=== PATIENT | male | born 1975 | race Caucasian/White ===

== ENCOUNTER 2016-11-23 08:55 | Emergency (ER) | payer OTHER ==
[~2016-11-23 08:55] MED LIST: ASPIRIN ADULT L81 M1 PO; ATIVAN1 MG PO; LISINOPRIL10 MG PO; LOPRESSOR25 MG PO; PRILOSEC20 MG PO; SUBOXONE1 MI3; ZANTAC 150 MAX150 MG PO
--- NOTE | 2016-11-23 09:43 | ED NURSING NOTES ---
Clinical Report - Nurses [facility] [address] [place] [address] 11/23/2016 8:57 [id number] Triage time 09:06. Acuity: LEVEL 3. Chief Complaint: PALPITATIONS. Alert. No acute distress. [place] COMA SCORE: [place] Coma Scale: 15- eyes open spontaneously (4); best verbal response- oriented x 4 (5); best motor response- obeys commands (6). --09:11 Yesi Mendez R.N. 09:06 11/23/16. BP: 133/86. HR: 95. RR: 16. O2 saturation: 98%. Temp: 97.9 F. Pain level now: 0/10. --09:11 Yesi Mendez R.N. Weight: 3.1 kg stated. Height/Length: 71 inches Per Patient. BMI: 1. --09:09 Yesi Mendez R.N. Medications Metoprolol Tartrate Oral 50 mg, daily. --09:08 Yesi Mendez R.N. Medication/allergy information source: the patient. --09:11 Yesi Mendez R.N. Allergies Sulfa Antibiotics. Possible --09:08 Yesi Mendez R.N. History Arrived by private vehicle. Historian: patient. Unaccompanied. Primary physician ([place]). Onset. (about 0330). ( woke this AM and felt like he was in AF again). SOCIAL HX: Heavy tobacco smoker- 1 pack per day. Alcohol use; consumes three wine daily. History of occasional drug use: marijuana. FALL RISK ASSESSMENT: Fall risk assessment completed. No fall risk identified. FUNCTIONAL ASSESSMENT: Functional assessment: no impairments noted. LEARNING NEEDS ASSESSMENT: The learning needs assessment revealed no barriers. --09:11 Yesi Mendez R.N. PROBLEMS: Atrial Fibrillation. Congestive Heart Failure. Alcoholism. Hypertension. --09:09 Yesi Mendez R.N. ADDITIONAL SURGERIES: Knee Surgery. --09:09 Yesi Mendez R.N. Assessment GENERAL / NEURO / PSYCH: The patient is awake, alert and in no distress and is oriented and cooperative. He has good eye contact. RESPIRATORY: Respirations not labored. SKIN: Skin is warm and dry. --09:11 Yesi Mendez R.N. Interventions ID and allergy band on patient. To treatment room. --09:11 Yesi Mendez R.N. PHYSICAL ASSESSMENT 09:16 11/23/16. Ambulatory to room. Patient gowned. GENERAL / NEURO / PSYCH: Alert. Oriented X 4. Appears in no acute distress. RESPIRATORY: Respirations not labored. CVS: Cardiac rhythm: sinus rhythm. SKIN: Skin is warm and dry. --09:16 Yesi Mendez R.N. NURSING PROGRESS NOTES 09:12 11/23/2016 Site #1 started via IV in the right antecubital space with an 18g angiocath, with aseptic technique and good blood return; one attempt. Blood drawn: rainbow set. Labeled in the presence of the patient and sent to the lab. Saline lock flushed with 10 mL saline (by Ninfa SAMUEL). --09:12 Yesi Mendez R.N. 09:13 11/23/16. environmental monitoring technician, pulse oximeter and NIBP monitor placed on patient. Patient gowned. Head of bed elevated. Call light placed in reach. Side rails up x 2. Bed placed in lowest position. Brakes of bed on. --09:13 Yesi Mendez R.N. EKG time: (12). EKG was ordered, performed by a tech and shown to the ED physician. --09:18 Grace Rabago, Tech1 The patient reports no complaints and he is calm. RESPIRATORY: No respiratory distress. SKIN: Skin is warm and dry. --09:31 Ninfa Ye R.N. 09:30 11/23/16. BP: 112/87. HR: 77. RR: 18. O2 saturation: 96%. Pain level now 0/10. --09:31 Ninfa Ye R.N. DISPOSITION / DISCHARGE Departure time: 09:50. Condition at departure: unchanged. No learning barriers present. Discharge instructions provided and reviewed with the patient. Patient verbalized understanding. Written instructions provided in Yakut. The patient was discharged home. He left the Emergency Department ambulatory and via private vehicle. Patient driving. --09:50 Ninfa Ye R.N. 09:49 11/23/16. BP: 128/86. HR: 86. RR: 16. O2 saturation: 98%. Pain level now 0/10. --09:50 Ninfa Ye R.N. Locked/Released at 11/23/2016 9:51 by Ninfa Ye R.N.
--- NOTE | 2016-11-23 09:43 | ED CLINICAL REPORT ---
Clinical Report - Physicians/Mid Levels [facility] [address] [place] [address] 11/23/2016 8:57 Patient: HOSEA ZHU Time Seen: 09:29. Arrived- By private vehicle. Historian- patient. HISTORY OF PRESENT ILLNESS Chief Complaint: PALPITATIONS. Modifying factors. Not worsened by anything. Not relieved by anything. This started today at about 0300 and is now gone. Onset during sleep. No history of caffeine use prior to onset, decongestants use prior to onset, cocaine use prior to onset or amphetamine use prior to onset. It is described as an irregular heart beat. He did not lose consciousness. He did not feel like might "pass out". Not described as dizziness or weakness. No chest pain or discomfort, sweating episodes, fainting episodes or dizziness. No tingling or muscle spasms. He has had difficulty breathing (slight). ( Pt thinks he drank too much wine last night.). Treatment PRODUCT MGR: (Pt took his metoprolol). Similar symptoms previously: Several times. Recent medical care: Not recently seen/assessed. REVIEW OF SYSTEMS No fever, chills, cough, orthopnea or calf pain. No enlarged lymph nodes, headache, sore throat, blurred vision or nausea. No abdominal pain, black stools, difficulty with urination, skin rash or trouble sleeping. No vomiting, diarrhea or bloody stools. The patient has not had a poor appetite. All systems otherwise negative, except as recorded above. PAST HISTORY Problems: Atrial Fibrillation. Congestive Heart Failure. Alcoholism. Hypertension. Additional Surgeries: Knee Surgery. Medications: Metoprolol Tartrate Oral 50 mg, daily. Allergies: Sulfa Antibiotics. Possible. SOCIAL HISTORY Smoker- current status unknown. Alcohol use. History of drug use: marijuana. ADDITIONAL NOTES The nursing notes have been reviewed. PHYSICAL EXAM Vital Signs: 11/23/2016 09:06 BP: 133/86. HR: 95. RR: 16. O2 saturation: 98%. Temp: 97.9 F. Pain level now: 0/10. Have been reviewed. Appearance: Alert. Oriented X3. No acute distress. Eyes: Pupils equal, round and reactive to light. Eyes normal inspection. ENT: Nose normal. Neck: Normal inspection. CVS: Normal heart rate and rhythm. Heart sounds normal. Pulses normal. Respiratory: No respiratory distress. Breath sounds normal. Abdomen: Soft and nontender. Back: Normal external inspection. Skin: Skin warm and dry. Normal skin color. No rash. Normal skin turgor. Extremities: Extremities exhibit normal ROM. No lower extremity edema. Neuro: Oriented X 3. No motor deficit. No sensory deficit. LABS, X-RAYS, AND EKG Pulse Oximetry: 11/23/2016 09:06 O2 saturation: 98%. (FIO2 - room air). Interpretation: normal. PROGRESS AND PROCEDURES Course of Care: Pt reported feeling better as soon as he came in the ED. Monitor reading and EKG both demonstrated NSR. I did not feel any further intervention was indicated. Patient counseled in person regarding the patient's stable condition, diagnosis and need for follow-up. Concerns were addressed. Old medical records reviewed. Disposition: Discharged. Condition: stable and improved. CLINICAL IMPRESSION , paroxysmal atrial fibrillation with controlled rate. (with spontaneous conversion in the ED). INSTRUCTIONS Warnings: GENERAL WARNINGS: Return or contact your physician immediately if your condition worsens or changes unexpectedly, if not improving as expected, or if other problems arise. Your Current Medications: CONTINUE TAKING THE FOLLOWING MEDICATIONS: Metoprolol Tartrate Oral : 50 mg daily. Follow-up: Follow up with your doctor as needed. Understanding of the discharge instructions verbalized by patient. (Electronically signed by Malissa Agarwal MD 11/23/2016 10:03)
--- NOTE | 2016-11-23 09:43 | ED CLINICAL REPORT ---
Clinical Report - Physicians/Mid Levels [facility] [address] [place] [address] 11/23/2016 8:57 Patient: HOSEA ZHU Time Seen: 09:29. Arrived- By private vehicle. Historian- patient. HISTORY OF PRESENT ILLNESS Chief Complaint: PALPITATIONS. Modifying factors. Not worsened by anything. Not relieved by anything. This started today at about 0300 and is now gone. Onset during sleep. No history of caffeine use prior to onset, decongestants use prior to onset, cocaine use prior to onset or amphetamine use prior to onset. It is described as an irregular heart beat. He did not lose consciousness. He did not feel like might "pass out". Not described as dizziness or weakness. No chest pain or discomfort, sweating episodes, fainting episodes or dizziness. No tingling or muscle spasms. He has had difficulty breathing (slight). ( Pt thinks he drank too much wine last night.). Treatment CARD GRINDER: (Pt took his metoprolol). Similar symptoms previously: Several times. Recent medical care: Not recently seen/assessed. REVIEW OF SYSTEMS No fever, chills, cough, orthopnea or calf pain. No enlarged lymph nodes, headache, sore throat, blurred vision or nausea. No abdominal pain, black stools, difficulty with urination, skin rash or trouble sleeping. No vomiting, diarrhea or bloody stools. The patient has not had a poor appetite. All systems otherwise negative, except as recorded above. PAST HISTORY Problems: Atrial Fibrillation. Congestive Heart Failure. Alcoholism. Hypertension. Additional Surgeries: Knee Surgery. Medications: Metoprolol Tartrate Oral 50 mg, daily. Allergies: Sulfa Antibiotics. Possible. SOCIAL HISTORY Smoker- current status unknown. Alcohol use. History of drug use: marijuana. ADDITIONAL NOTES The nursing notes have been reviewed. PHYSICAL EXAM Vital Signs: 11/23/2016 09:06 BP: 133/86. HR: 95. RR: 16. O2 saturation: 98%. Temp: 97.9 F. Pain level now: 0/10. Have been reviewed. Appearance: Alert. Oriented X3. No acute distress. Eyes: Pupils equal, round and reactive to light. Eyes normal inspection. ENT: Nose normal. Neck: Normal inspection. CVS: Normal heart rate and rhythm. Heart sounds normal. Pulses normal. Respiratory: No respiratory distress. Breath sounds normal. Abdomen: Soft and nontender. Back: Normal external inspection. Skin: Skin warm and dry. Normal skin color. No rash. Normal skin turgor. Extremities: Extremities exhibit normal ROM. No lower extremity edema. Neuro: Oriented X 3. No motor deficit. No sensory deficit. LABS, X-RAYS, AND EKG Pulse Oximetry: 11/23/2016 09:06 O2 saturation: 98%. (FIO2 - room air). Interpretation: normal. PROGRESS AND PROCEDURES Course of Care: Pt reported feeling better as soon as he came in the ED. Monitor reading and EKG both demonstrated NSR. I did not feel any further intervention was indicated. Patient counseled in person regarding the patient's stable condition, diagnosis and need for follow-up. Concerns were addressed. Old medical records reviewed. Disposition: Discharged. Condition: stable and improved. CLINICAL IMPRESSION , paroxysmal atrial fibrillation with controlled rate. (with spontaneous conversion in the ED). INSTRUCTIONS Warnings: GENERAL WARNINGS: Return or contact your physician immediately if your condition worsens or changes unexpectedly, if not improving as expected, or if other problems arise. Your Current Medications: CONTINUE TAKING THE FOLLOWING MEDICATIONS: Metoprolol Tartrate Oral : 50 mg daily. Follow-up: Follow up with your doctor as needed. Understanding of the discharge instructions verbalized by patient. (Electronically signed by Malissa Agarwal MD 11/23/2016 10:03)
--- NOTE | 2016-11-23 09:43 | ED NURSING NOTES ---
Clinical Report - Nurses [facility] [address] [place] [address] 11/23/2016 8:57 [id number] Triage time 09:06. Acuity: LEVEL 3. Chief Complaint: PALPITATIONS. Alert. No acute distress. [place] COMA SCORE: [place] Coma Scale: 15- eyes open spontaneously (4); best verbal response- oriented x 4 (5); best motor response- obeys commands (6). --09:11 Yesi Mendez R.N. 09:06 11/23/16. BP: 133/86. HR: 95. RR: 16. O2 saturation: 98%. Temp: 97.9 F. Pain level now: 0/10. --09:11 Yesi Mendez R.N. Weight: 3.1 kg stated. Height/Length: 71 inches Per Patient. BMI: 1. --09:09 Yesi Mendez R.N. Medications Metoprolol Tartrate Oral 50 mg, daily. --09:08 Yesi Mendez R.N. Medication/allergy information source: the patient. --09:11 Yesi Mendez R.N. Allergies Sulfa Antibiotics. Possible --09:08 Yesi Mendez R.N. History Arrived by private vehicle. Historian: patient. Unaccompanied. Primary physician ([place]). Onset. (about 0330). ( woke this AM and felt like he was in AF again). SOCIAL HX: Heavy tobacco smoker- 1 pack per day. Alcohol use; consumes three wine daily. History of occasional drug use: marijuana. FALL RISK ASSESSMENT: Fall risk assessment completed. No fall risk identified. FUNCTIONAL ASSESSMENT: Functional assessment: no impairments noted. LEARNING NEEDS ASSESSMENT: The learning needs assessment revealed no barriers. --09:11 Yesi Mendez R.N. PROBLEMS: Atrial Fibrillation. Congestive Heart Failure. Alcoholism. Hypertension. --09:09 Yesi Mendez R.N. ADDITIONAL SURGERIES: Knee Surgery. --09:09 Yesi Mendez R.N. Assessment GENERAL / NEURO / PSYCH: The patient is awake, alert and in no distress and is oriented and cooperative. He has good eye contact. RESPIRATORY: Respirations not labored. SKIN: Skin is warm and dry. --09:11 Yesi Mendez R.N. Interventions ID and allergy band on patient. To treatment room. --09:11 Yesi Mendez R.N. PHYSICAL ASSESSMENT 09:16 11/23/16. Ambulatory to room. Patient gowned. GENERAL / NEURO / PSYCH: Alert. Oriented X 4. Appears in no acute distress. RESPIRATORY: Respirations not labored. CVS: Cardiac rhythm: sinus rhythm. SKIN: Skin is warm and dry. --09:16 Yesi Mendez R.N. NURSING PROGRESS NOTES 09:12 11/23/2016 Site #1 started via IV in the right antecubital space with an 18g angiocath, with aseptic technique and good blood return; one attempt. Blood drawn: rainbow set. Labeled in the presence of the patient and sent to the lab. Saline lock flushed with 10 mL saline (by Ninfa SAMUEL). --09:12 Yesi Mendez R.N. 09:13 11/23/16. disc sander, pulse oximeter and NIBP monitor placed on patient. Patient gowned. Head of bed elevated. Call light placed in reach. Side rails up x 2. Bed placed in lowest position. Brakes of bed on. --09:13 Yesi Mendez R.N. EKG time: (12). EKG was ordered, performed by a tech and shown to the ED physician. --09:18 Grace Rabago, Tech1 The patient reports no complaints and he is calm. RESPIRATORY: No respiratory distress. SKIN: Skin is warm and dry. --09:31 Ninfa Ye R.N. 09:30 11/23/16. BP: 112/87. HR: 77. RR: 18. O2 saturation: 96%. Pain level now 0/10. --09:31 Ninfa Ye R.N. DISPOSITION / DISCHARGE Departure time: 09:50. Condition at departure: unchanged. No learning barriers present. Discharge instructions provided and reviewed with the patient. Patient verbalized understanding. Written instructions provided in Romanian. The patient was discharged home. He left the Emergency Department ambulatory and via private vehicle. Patient driving. --09:50 Ninfa Ye R.N. 09:49 11/23/16. BP: 128/86. HR: 86. RR: 16. O2 saturation: 98%. Pain level now 0/10. --09:50 Ninfa Ye R.N. Locked/Released at 11/23/2016 9:51 by Ninfa Ye R.N.
--- NOTE | 2016-11-23 10:03 | ED MED RECONCILIATION SUMMARY ---
Patient: HOSEA ZHU Medication Reconciliation Report [facility] VisitID: [id number] [address] [place] [address] 41y, M Registration Date/Time: 11/23/2016 Weight: 3.1 kg Height/Length: 71 in. BMI: 1.0 ALLERGIES: Sulfa Antibiotics The patient's Home Medications are listed below: CONTINUE TAKING THE FOLLOWING MEDICATIONS: Metoprolol Tartrate Oral 50 mg, daily The source(s) of the original Home Medication information: patient The following Medications were given to the patient in the Emergency Department: None. The following Medications were prescribed to the patient: None.
--- NOTE | 2016-11-23 10:03 | ED MED RECONCILIATION SUMMARY ---
Patient: HOSEA ZHU Medication Reconciliation Report [facility] VisitID: [id number] [address] [place] [address] 41y, M Registration Date/Time: 11/23/2016 Weight: 3.1 kg Height/Length: 71 in. BMI: 1.0 ALLERGIES: Sulfa Antibiotics The patient's Home Medications are listed below: CONTINUE TAKING THE FOLLOWING MEDICATIONS: Metoprolol Tartrate Oral 50 mg, daily The source(s) of the original Home Medication information: patient The following Medications were given to the patient in the Emergency Department: None. The following Medications were prescribed to the patient: None.
--- NOTE | 2016-11-23 10:03 | ED MAR SUMMARY ---
..... Medication Administration Record [facility] [address] [place], [place] [id number] Patient: HOSEA ZHU Visit ID: [id number] 41y, M Weight: 3.1 kg Height/Length: 71 in BMI: 1 ALLERGIES: Sulfa Antibiotics
--- NOTE | 2016-11-23 10:03 | ED MAR SUMMARY ---
..... Medication Administration Record [facility] [address] [place] [place], [place] [id number] Patient: HOSEA ZHU Visit ID: [id number] 41y, M Weight: 3.1 kg Height/Length: 71 in BMI: 1 ALLERGIES: Sulfa Antibiotics
--- NOTE | 2016-11-23 10:03 | ED DISCHARGE INSTRUCTIONS ---
Patient: HOSEA ZHU General Instructions [facility] VisitID: [id number] [place] [address] 41y, M Registration Date/Time: 11/23/2016 , paroxysmal atrial fibrillation with controlled rate. (with spontaneous conversion in the ED). INSTRUCTIONS Warnings: GENERAL WARNINGS: Return or contact your physician immediately if your condition worsens or changes unexpectedly, if not improving as expected, or if other problems arise. Your Current Medications: CONTINUE TAKING THE FOLLOWING MEDICATIONS: Metoprolol Tartrate Oral : 50 mg daily. Follow-up: Follow up with your doctor as needed. Understanding of the discharge instructions verbalized by patient. ADDITIONAL INFORMATION Arrhythmia Electrical impulses cause the normal heart to beat 60 to 100 times a minute. These impulses come from a natural pacemaker deep inside the heart muscle. Each impulse causes the heart muscle to contract. This causes the blood to flow through the heart and out to the tissues and organs of your body. An arrhythmia is a change from the normal speed or pattern of these electrical impulses. This can cause the heart to beat too fast (tachycardia); or too slow (bradycardia); or in an unsteady pattern (irregular rhythm). Symptoms of arrhythmias Different people experience arrhythmias differently. Sometimes they may not have symptoms, but just notice a change in their pulse. Symptoms can include: Fluttering feeling in the chest Shortness of breath Chest pain or pressure Lightheadedness or dizziness Fainting or nearly fainting Palpitations Tiredness, fatigue, or weakness Causes of arrhythmias Arrhythmias are most often due to heart disease such as: Coronary artery disease (arteriosclerosis) Disease of the heart valves Enlarged heart High blood pressure Heart failure Other causes ofarrhythmia include: Certain medicines (such as asthma inhalers and decongestants) Some herbal supplements Cardiac stimulant drugs (such as cocaine, amphetamine, diet pills, certain decongestant cold medicines, caffeine, and nicotine) Excessive alcohol use Medical conditions such as thyroid disease, anemia, anxiety, and panic disorder Arrythmias can often be prevented. The cause and type of arrhythmia determines the best treatment. Sometimes your doctor may want to monitor your heart rate over a 24-hour period or longer. This can help identify the cause of your arrhythmia and find the best treatment. This can be done with a Holter monitor,a portable EKG recording device attached by wires to your chest. You can carry this with you as you perform your routine activities during the monitoring period. Home care Avoid cardiac stimulants (such as cocaine, amphetamine, diet pills, certain decongestant cold medicines, caffeine, and nicotine). If you smoke, stop smoking. Contact your doctor or a local stop-smoking program for help. Tell your doctor about any prescription, [id number] or herbal medicines you take. These may be affecting your heart rhythm. Follow-up care Follow up with your health care provider or as advised by our staff. If a Holter monitor has been recommended, contact the cardiologistyou have been referred toas soon as you canpick up the device. Other outpatient tests may also be arranged for you at that time. Call 911 This is the fastest and safest way to get to the emergency department. The paramedics can also start treatment on the way to the hospital, if needed. Don'twait until your symptoms are severe to call 911. Other reasons to call 911 besides chest pain include: Chest, shoulder, arm, neck, or back pain Shortness of breath Feeling lightheaded, faint, or dizzy Rapid heart beat Slower than usual heart rate compared to your normal Angina withweakness, dizziness, fainting, heavy sweating, nausea, or vomiting Extreme drowsiness, or confusion Weakness of an arm or leg or one side of the face Difficulty with speech or vision When to seek medical care Remember, things are not always like they are on TV. Sometimes it is not so obvious. You may only feel weak or just "not right." If it is not clear or if you have any doubt, call for advice. Seek help for chest pain, or it feels different from usual, even if your symptoms are mild. Do not drive yourself. Have someone else drive. If no one can drive you, call 911. If your doctor has given you medicines to take when you have symptoms, take them, but do not delay getting help while trying to find them. Do not delay. Fast diagnosis and treatment can prevent or limit the amount of heart damage during a heart attack or stroke. Do not go to your doctor's ofice or a clinic because they will not be able to provide all of the testing or treatment required for this condition. You have been given the following additional information: Arrhythmia, Unspecified (Electronically signed by Malissa Agarwal MD 11/23/2016 10:03)
== END 2016-11-23 09:51 | disposition home or self-care (01) ==
LOC: ED SRH 08:55
DX: I48.0 Paroxysmal atrial fibrillation (principal); I10 Essential (primary) hypertension; Z79.899 Other long term (current) drug therapy; F12.10 Cannabis abuse, uncomplicated; F17.210 Nicotine dependence, cigarettes, uncomplicated; Z88.2 Allergy status to sulfonamides